=== PATIENT | female | born 1975 | race Caucasian/White ===

== ENCOUNTER 2017-08-12 17:58 | Emergency (ER) | payer OTHER ==
[~2017-08-12] VITALS: Ht 165.1 cm; Wt 105.7 kg
--- NOTE | 2017-08-12 18:45 | ED GENERAL ADULT ---
History of Present Illness General Chief Complaint: General Adult Stated Complaint: RABIES SHOT Source: patient, family, old records Exam Limitations: no limitations Vital Signs & Intake/Output Vital Signs & Intake/Output Vital Signs Date Time Temp Pulse Resp B/P B/P Pulse O2 O2 Flow FiO2 Mean Ox Delivery Rate 08/12 1837 98.3 90 18 137/78 98 Room Air Allergies Coded Allergies: No Known Allergies (08/12/17) Triage Note: PT WAS POSSIBLY IN CONTACT WITH A BAT IN HER BEDROOM FROM OVERNIGHT Triage Nurses Notes Reviewed? yes Onset: Abrupt Duration: day(s): (1), better Timing: single episode today Injury Environment: home Severity: mild No Modifying Factors: none Associated Symptoms: DENIES : No Patient currently breastfeeds: No HPI: 42-year-old FEmale presents to ER sent in by hervet for rabies vaccination after they found a bat flying around her bedroom today. The patient and herhusband deny being bit. There are no complaints at this time otherwise. They've never received rabies vaccination prior. (Dylon Peñaloza) Past History Travel History Traveled to [place] past 21 day No Medical History Any Pertinent Medical History? 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 No (Dylon Peñaloza) Review of Systems Review of Systems Constitutional: Reports: see HPI. Comments Review of systems: See HPI, All other systems negative. Constitutional, no chills no fever, HEENT: no sore throat no congestion Cardiovascular: No chest pain Skin: no rashes, no change in skin Respiratory: no cough GI: No nausea no vomiting Muscle skeletal: No joint pain, no back pain Neurologic:, no headache Heme/endocrine: No bruising (Dylon Peñaloza) Physical Exam Physical Exam General Appearance: well developed/nourished, no apparent distress Comments: Well-developed well-nourished patient in no apparent distress. HEENT: Atraumatic, extraocular motion intact Neck: Supple, FROM Back: FROM Respiratory: No respiratory distress. Patient speaking in full complete sentences. Extremities: full range of motion Neuro: awake, alert, and oriented to person, place and time. There were no obvious focal neurologic abnormalities. Skin: Warm & dry;No appreciable rash on exposed skin Psych: Mood affect normal, normal memory normal judgment. Core Measures ACS in differential dx? No CVA/TIA Diagnosis: No Sepsis Present: No Sepsis Focused Exam Completed? No (Dylon Peñaloza) Progress Differential Diagnoses I considered the following diagnoses in my evaluation of the patient: [email or web address] Plan of Care: Current Medications Sig/Daniel Start time Last Medication Dose Stop Time Status Admin Rabies Immune 3,150 UNITS ONCE ONE 08/12 1899 CAN Globulin 08/12 1900 (Rabies Immune Globlulin Inj) I discussed with the patient at length plan of care I had an extensive conversation regarding need for close follow up with their primary care physician this week as well as return precautions. I answered all of their questions, they feel comfortable with the plan and follow-up care. I provided them with the scheduled for the remainder of the rabies vaccinations they feel comfortable plan Initial ED EKG: none (Dylon Peñaloza) Departure Departure Time of Disposition: 1908 Disposition: HOME OR SELF CARE Condition: Stable Clinical Impression Primary Impression: Need for prophylactic vaccination against rabies Referrals: Mendez LOYOLA,Jonatan Perdue (PCP/Family) Additional Instructions: please return on day 3, day 7 and 14 for the remainder of your rabies vaccinations. return anytime sooner with any concerns. 08/15 08/19 08/26 Departure Forms: Customer Survey General Discharge Information (Dylon Peñaloza) PA/LEATHER CLEANER Co-Sign Statement Statement: ED Attending supervision documentation- [] I saw and evaluated the patient. I have also reviewed all the pertinent lab results and diagnostic results. I agree with the findings and the plan of care as documented in the PA's/LEATHER CLEANER's documentation. [X] I have reviewed the ED Record and agree with the PA's/LEATHER CLEANER's documentation. [] Additions or exceptions (if any) to the PAs/LEATHER CLEANER's note and plan are summarized below: [] (Shawn Salguero DO) Critical Care Note Critical Care Note Critical Care Time: non-applicable (Dylon Peñaloza)
[2017-08-12 19:50] VITALS: BP 132/77
== END 2017-08-12 19:55 ==
LOC: ERH 17:58
DX: Z20.3 Contact with and (suspected) exposure to rabies (principal)
CPT/HCPCS: 90376; 90471

== ENCOUNTER 2017-08-15 15:36 | Emergency (ER) | payer OTHER ==
[~2017-08-15] VITALS: Ht 165.1 cm; Wt 104.3 kg
--- NOTE | 2017-08-15 15:42 | ED GENERAL ADULT ---
History of Present Illness General Chief Complaint: General Adult Stated Complaint: "TO FOLLOW UP RABIES VACCINATION" Source: patient, family, old records Exam Limitations: no limitations Vital Signs & Intake/Output Vital Signs & Intake/Output Vital Signs Date Time Temp Pulse Resp B/P B/P Pulse O2 O2 Flow FiO2 Mean Ox Delivery Rate 08/15 1546 98.7 80 18 150/77 97 Room Air Room Air Allergies Coded Allergies: No Known Allergies (08/12/17) Triage Nurses Notes Reviewed? yes Onset: Gradual Duration: day(s): Timing: recent history Injury Environment: home HPI: 42yo female presents to ED for second rabbies vaccine. Patient was exposed to a bat in her home, no known bite, recieving rabbies vaccine for prophylaxis. She tolerated first vaccine on 08/12/17 without adverse reaction. No current complaints at this time. (Leola Vernon) Past History Travel History Traveled to [place] past 21 day No Medical History Any Pertinent Medical History? 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 No (Leola Vernon) Review of Systems Review of Systems Constitutional: Reports: no symptoms. EENTM: Reports: no symptoms. Respiratory: Reports: no symptoms. Cardiovascular: Reports: no symptoms. GI: Reports: no symptoms. Genitourinary: Reports: no symptoms. Musculoskeletal: Reports: no symptoms. Skin: Reports: no symptoms. Neurological/Psychological: Reports: no symptoms. Hematologic/Endocrine: Reports: no symptoms. Immunologic/Allergic: Reports: no symptoms. All Other Systems: Reviewed and Negative (Leola Vernon) Physical Exam Physical Exam General Appearance: well developed/nourished, no apparent distress, alert, awake Head: atraumatic, normal appearance Eyes: Bilateral: normal appearance. Ears, Nose, Throat: hearing grossly normal Neck: normal inspection, supple, full range of motion Respiratory: no respiratory distress Back: normal inspection, normal range of motion Extremities: normal inspection, normal range of motion Neurologic/Psych: awake, alert, oriented x 3 Skin: intact, normal color, warm/dry Core Measures ACS in differential dx? No CVA/TIA Diagnosis: No Sepsis Present: No Sepsis Focused Exam Completed? No (Leola Vernon) Progress Differential Diagnoses I considered the following diagnoses in my evaluation of the patient: [encounter for vaccine, rabbies, vaccine reaction] Plan of Care: Current Medications Sig/Daniel Start time Last Medication Dose Stop Time Status Admin Rabies Vaccine 1 SYR ONCE ONE 08/15 1545 UNVr (Rabies (Vaccine) 08/15 1546 Inj (1ML)) Patient given second dose of rabbies vaccine today. Will follow up appropriately. Patient agrees with plan of care. Initial ED EKG: none (Leola Vernon) Departure Departure Disposition: HOME OR SELF CARE Condition: Stable Clinical Impression Primary Impression: Encounter for administration of vaccine Referrals: Mendez LOYOLA,Jonatan Perdue (PCP/Family) Additional Instructions: RETURN 08/19 AND 08/26 FOR REMAINDER OF RABBIES VACCINES. RETURN SOONER WITH ANY SYMPTOMS OR CONCERNS. Departure Forms: Customer Survey General Discharge Information (Leola Vernon) PA/CHEF INSTRUCTOR Co-Sign Statement Statement: ED Attending supervision documentation- [] I saw and evaluated the patient. I have also reviewed all the pertinent lab results and diagnostic results. I agree with the findings and the plan of care as documented in the PA's/CHEF INSTRUCTOR's documentation. [X] I have reviewed the ED Record and agree with the PA's/CHEF INSTRUCTOR's documentation. [] Additions or exceptions (if any) to the PAs/CHEF INSTRUCTOR's note and plan are summarized below: [] (Marie LOYOLA,Nathan Perdue) Critical Care Note Critical Care Note Critical Care Time: non-applicable (Leola Vernon)
[2017-08-15 15:46] VITALS: BP 150/77
== END 2017-08-15 16:17 ==
LOC: ERH 15:36
DX: Z20.3 Contact with and (suspected) exposure to rabies (principal)
CPT/HCPCS: 90471; 99281

== ENCOUNTER 2017-08-19 15:44 | Emergency (ER) | payer OTHER ==
[~2017-08-19] VITALS: Ht 165.1 cm; Wt 102.1 kg
[2017-08-19 16:06] VITALS: BP 143/85
--- NOTE | 2017-08-19 16:06 | ED GENERAL ADULT ---
History of Present Illness General Chief Complaint: General Adult Stated Complaint: HERE FOR 3RD RABIES SHOT Source: patient Exam Limitations: no limitations Vital Signs & Intake/Output Vital Signs & Intake/Output Vital Signs Date Time Temp Pulse Resp B/P B/P Pulse O2 O2 Flow FiO2 Mean Ox Delivery Rate 08/19 1606 98.3 79 18 143/85 98 Room Air Allergies Coded Allergies: No Known Allergies (08/12/17) Triage Nurses Notes Reviewed? yes Onset: Abrupt Duration: day(s): Timing: recent history Injury Environment: home HPI: 42-year-old female here for third rabies vaccine. Denies any pain. Denies any other associated symptoms. A bat was in the house. Denies any other associated symptoms. Denies any pain. Past History Travel History Traveled to [place] past 21 day No Medical History Any Pertinent Medical History? 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 No Review of Systems Review of Systems Constitutional: Reports: no symptoms. EENTM: Reports: no symptoms. Respiratory: Reports: no symptoms. Cardiovascular: Reports: no symptoms. GI: Reports: no symptoms. Genitourinary: Reports: no symptoms. Musculoskeletal: Reports: no symptoms. Skin: Reports: no symptoms. Neurological/Psychological: Reports: no symptoms. Hematologic/Endocrine: Reports: no symptoms. Immunologic/Allergic: Reports: no symptoms. All Other Systems: Reviewed and Negative Physical Exam Physical Exam General Appearance: well developed/nourished, no apparent distress, alert Head: atraumatic, normal appearance Eyes: Bilateral: normal appearance. Ears, Nose, Throat: normal ENT inspection, hearing grossly normal Neck: normal inspection Respiratory: no respiratory distress Back: normal range of motion Extremities: normal inspection Neurologic/Psych: awake, alert, oriented x 3 Skin: intact, normal color Core Measures ACS in differential dx? No CVA/TIA Diagnosis: No Sepsis Present: No Sepsis Focused Exam Completed? No Progress Differential Diagnoses I considered the following diagnoses in my evaluation of the patient: Rabies, cellulitis, allergic reaction, Plan of Care: Return as previously instructed Initial ED EKG: none Departure Departure Disposition: HOME OR SELF CARE Condition: Stable Clinical Impression Primary Impression: Rabies exposure Referrals: Mendez LOYOLA,Jonatan Perdue (PCP/Family) Additional Instructions: Return as previously instructed. Return if any other concerns worsening symptoms. Departure Forms: Customer Survey General Discharge Information Critical Care Note Critical Care Note Critical Care Time: non-applicable
== END 2017-08-19 17:05 ==
LOC: ERH 15:44
DX: Z20.3 Contact with and (suspected) exposure to rabies (principal)
CPT/HCPCS: 90471; 99281

== ENCOUNTER 2017-08-26 16:58 | Emergency (ER) | payer OTHER ==
[~2017-08-26] VITALS: Ht 165.1 cm; Wt 104.3 kg
--- NOTE | 2017-08-26 17:07 | ED GENERAL ADULT ---
History of Present Illness General Chief Complaint: General Adult Stated Complaint: PT IS HERE FOR RABIES SHOT Source: patient, old records Exam Limitations: no limitations Vital Signs & Intake/Output Vital Signs & Intake/Output Vital Signs Date Time Temp Pulse Resp B/P B/P Pulse O2 O2 Flow FiO2 Mean Ox Delivery Rate 08/26 1724 99 Room Air 08/26 1708 98.7 80 16 136/85 99 Room Air Allergies Coded Allergies: No Known Allergies (08/12/17) Triage Nurses Notes Reviewed? yes Onset: Abrupt Duration: week(s): (1), better Timing: single episode today Injury Environment: home Severity: mild : No HPI: 42-year-old female NO medical history presentS FOR her final rabies vaccine. She states that the bat was in her house. This is her fourth rabies vaccine she 's been tolerating them well. No other concerns (Juan Sorto) Past History Travel History Traveled to [place] past 21 day No Medical History Any Pertinent Medical History? 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 No (Juan Sorto) Review of Systems Review of Systems Constitutional: Reports: no symptoms. EENTM: Reports: no symptoms. Respiratory: Reports: no symptoms. Cardiovascular: Reports: no symptoms. GI: Reports: no symptoms. Genitourinary: Reports: no symptoms. Musculoskeletal: Reports: no symptoms. Skin: Reports: no symptoms. Neurological/Psychological: Reports: no symptoms. Hematologic/Endocrine: Reports: no symptoms. Immunologic/Allergic: Reports: no symptoms. All Other Systems: Reviewed and Negative (Juan Sorto) Physical Exam Physical Exam General Appearance: well developed/nourished, no apparent distress, alert, awake Head: atraumatic, normal appearance Eyes: Bilateral: normal appearance, EOMI. Ears, Nose, Throat: hearing grossly normal Neck: normal inspection, supple, full range of motion Respiratory: no respiratory distress Back: normal inspection, normal range of motion Extremities: normal inspection, normal range of motion, no edema Neurologic/Psych: no motor/sensory deficits, awake, alert, oriented x 3, normal gait Skin: intact, normal color, warm/dry Core Measures ACS in differential dx? No CVA/TIA Diagnosis: No Sepsis Present: No Sepsis Focused Exam Completed? No (Juan Sorto) Progress Differential Diagnoses I considered the following diagnoses in my evaluation of the patient: [Need for rabies vaccine] Plan of Care: Current Medications Sig/Daniel Start time Last Medication Dose Stop Time Status Admin Rabies Vaccine 1 SYR ONCE ONE 08/26 1714 UNVr (Rabies (Vaccine) 08/27 1715 Inj (1ML)) Patient is here for her final rabies vaccine. She's been tolerating the vaccines well. There is vaccine is administered patient was monitored for blood sugar reaction. No immediate Patient's patient is discharged follow-up with primary care doctor discussed precautions patient agrees Initial ED EKG: none (Juan Sorto) Departure Departure Disposition: HOME OR SELF CARE Condition: Stable Clinical Impression Primary Impression: Rabies, need for prophylactic vaccination against Referrals: Mendez LOYOLA,Jonatan Perdue (PCP/Family) Additional Instructions: RETURN NEEDED Departure Forms: Customer Survey General Discharge Information (Juan Sorto) PA/PROPOSAL DIRECTOR Co-Sign Statement Statement: ED Attending supervision documentation- I saw and evaluated the patient. I have also reviewed all the pertinent lab results and diagnostic results. I agree with the findings and the plan of care as documented in the PA's/PROPOSAL DIRECTOR's documentation. x I have reviewed the ED Record and agree with the PA's/PROPOSAL DIRECTOR's documentation. [] Additions or exceptions (if any) to the PAs/PROPOSAL DIRECTOR's note and plan are summarized below: [] (Nidhi LOYOLA,Efrem) Critical Care Note Critical Care Note Critical Care Time: non-applicable (Juan Sorto)
[2017-08-26 17:08] VITALS: BP 136/85
== END 2017-08-26 17:25 ==
LOC: ERH 16:58
DX: Z20.3 Contact with and (suspected) exposure to rabies (principal)
CPT/HCPCS: 90471; 99281